=== PATIENT | male | born 1985 | race Caucasian/White ===

== ENCOUNTER 2016-08-09 16:40 | Emergency (ER) | payer OTHER ==
--- NOTE | 2016-08-09 17:02 | ED CLINICAL REPORT ---
Clinical Report - Physicians/Mid Levels [facility] [address] [place] [address] 08/09/2016 16:41 [id number] Time Seen: 17:03 Aug 09 2016. Arrived- By private vehicle. HISTORY OF PRESENT ILLNESS Chief Complaint: DENTAL PAIN. This started 2 1/2 weeks and is still present. Pain described as moderate. No nasal congestion. He has had toothache. (patient presents fracture to his tooth over the last 2-1/2 weeks, pain. He reports was referred to the emergency department by his primary care provider. Patient reports pain with eating. Emesis from pain. At times dizzy. Reports taking Motrin for his right lower extremity, with a fracture and surgery and physical therapy a few years previously.). REVIEW OF SYSTEMS No fever, cough or difficulty breathing. All systems otherwise negative, except as recorded above. PAST HISTORY Problems: Diarrhea. Vomiting. Flank Pain. Asthma. Urinary Calculi. Renal Colic. Ureterolithiasis. Renal Failure. Nephrolithiasis. Abdominal Pain. Eye Injury. Upper Extremity Pain. Tendonitis. Corneal Abrasion. Immunizations. Additional Surgeries: Lithotripsy. Tib/fib fx repair . Medications: Albuterol Sulfate Inhalation. Allergies: None. SOCIAL HISTORY History of drug use: marijuana. ADDITIONAL NOTES The nursing notes have been reviewed. PHYSICAL EXAM Vital Signs: 08/09/2016 16:45 BP: 124/78. HR: 85. RR: 16. O2 saturation: 100%. Temp: 97.7 F. Pain level now: 6/10. Appearance: Alert. Head: Normal external inspection. ENT: Lips normal. Uvula midline. (They K of molar tooth is pushed on the lower aspect with fracture to both lowest teeth, no gumline mass. Right-sided gumline erythema and tenderness. No facial swelling. Uvula midline.). Neck: Trachea midline. CVS: Normal heart rate and rhythm. Heart sounds normal. Respiratory: No respiratory distress. Breath sounds normal. Neuro: Oriented X 3. PROGRESS AND PROCEDURES Course of Care: Patient with uvula midline, no signs of facial swelling. No signs of Jh's angina. Tolerating secretions ll. Reports he has no insurance or income, urged to follow up with a dentist as he will likely need such teeth extracted or this will recur with infectious process. 08/09/2016 16:45 BP: 124/78. HR: 85. RR: 16. O2 saturation: 100%. Temp: 97.7 F. Pain level now: 6/10. Patient is stable. Symptoms better. Patient/family counseled. Disposition: Discharged. CLINICAL IMPRESSION Moderate dental pain. INSTRUCTIONS Drink plenty of fluids. Prescription Medications: Hydrocodone/APAP 7.5mg / 325mg: take 1 orally every 6 hours as needed for pain. Dispense ten (10). No refill. Amoxicillin 500 mg capsules: take 1 orally every 8 hours for 10 days Follow-up: Follow up with a specialist in five days. (Electronically signed by Rosa Elena Ray P.A.-C 08/09/2016 17:05)
--- NOTE | 2016-08-09 17:02 | ED ORDER SUMMARY ---
..... Patient: KIM BAILEY OrderSheet [facility] VisitID: [id number] [place] [address] 31y, M Registration Date/Time: 08/09/2016 ORDER SHEET Weight: 148.7 kg Allergies: None GENERAL ORDERS: MEDICATION ORDERS: Hydrocodone-APAP PO 10/650 mg (NOW, HIGH ALERT MEDICATION) (16:49 08/09/2016 Nagi Anderson) (Ack 16:54 Luis R.N.) (17:19 Luis R.N.) Amoxicillin PO 500 mg (NOW) (16:49 08/09/2016 Nagi Anderson) (Ack 16:54 Luis R.N.) (17:19 Luis R.N.) IV FLUIDS: ORDER SHEET NOTES: [Electronically signed by Rosa Elena Ray P.A.-C (17:08/09/2016)] [Electronically signed by Luis Cameron R.N. (17:21 08/09/2016)] [Electronically locked/signed by Luis Cameron R.N. (17:08/09/2016)]
--- NOTE | 2016-08-09 17:02 | ED NURSING NOTES ---
Clinical Report - Nurses [facility] [address] [place] [address] 08/09/2016 16:41 Patient: KIM BAILEY TRIAGE Triage time 16:45. Acuity: LEVEL 5. Chief Complaint: RIGHT LOWER TOOTHACHE and CHIPPED TOOTH. --16:53 Luis Cameron R.N. 16:45 08/09/16. BP: 124/78. HR: 85. RR: 16. O2 saturation: 100%. Temp: 97.7 F. Pain level now: 08/25. --16:53 Luis Cameron R.N. Weight: 148.7 kg. Height/Length: 72 inches. BMI: 44.5. --16:50 Luis Cameron R.N. Medications Albuterol Sulfate Inhalation. --16:46 Luis Cameron R.N. Medication/allergy information source: the patient. --16:53 Luis Cameron R.N. Allergies None. --16:46 Luis Cameron R.N. History Arrived by private vehicle. Historian: patient. ( Chipped his tooth while biting a piece of bread 3 weeks ago, increasing toothache since. No dental coverage and was seen few days ago by PCP and told to come to ER for antibiotics and analgesia. also had nausea and vomiting with pain.). Onset was gradual. (3 weeks ago). He has no dental appointment scheduled. He has had a toothache. 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 SOCIAL HX: Smoker- current status unknown. History of drug use: marijuana. (3 days ago). --16:53 Luis Cameron R.N. Interventions ID band on patient. To room. --16:53 Luis Cameron R.N. PHYSICAL ASSESSMENT Ambulatory to room. GENERAL / NEURO / PSYCH: Alert. Oriented X 4. Appears in no acute distress. HEENT: Pupils equal, round and reactive to light. Voice within normal limits. Dental tenderness. Dental decay (right lower molar area, left lower molar area). Mucous membranes are pink. RESPIRATORY: Respirations not labored. CVS: Capillary refill less than 2 seconds. SKIN: Skin is warm and dry. Normal skin turgor. --16:53 Luis Cameron R.N. NURSING PROGRESS NOTES Head of bed elevated. Patient identifiers checked. Call light placed in reach. Side rails up x 1. Bed placed in lowest position. Brakes of bed on. Patient ready for evaluation- CLASSIFICATIONS OFFICER CC/CM notified. --16:54 Luis Cameorn R.N. 17:19 08/09/2016 Hydrocodone-APAP (Hydrocodone-Acetaminophen) PO 5/325 mg Tablets 2 tab given. Allergies verified, confirmed 5 rights and sedative warning given to the patient. --17:19 Luis Cameron R.N. 17:19 08/09/2016 Amoxicillin PO 500 mg given. Allergies verified and confirmed 5 rights. --17:19 Luis Cameron R.N. DISPOSITION / DISCHARGE No learning barriers present. Discharge instructions provided and reviewed with the patient. Reviewed medication(s) side effects, precautions, dosing and course information. Prescription(s) given to the patient. Reviewed referral to a dentist and primary care physician. Patient verbalized understanding. Written instructions provided in Portuguese. The patient was discharged home and accompanied by social work therapist and GIRLFRIEND. He left the Emergency Department ambulatory and via private vehicle. Creel Hand driving (GIRLFRIEND). --17:20 Luis Cameron R.N. 17:19 08/09/16. BP: 127/86. HR: 86. RR: 16. O2 saturation: 100%. Temp: 97.8 F. Pain level now: 07/25. --17:20 Luis Cameron R.N. Departure time: :20. --17:21 Luis Cameron R.N. Locked/Released at 08/09/2016 17:21 by Luis Cameron R.N.
--- NOTE | 2016-08-09 17:02 | ED ORDER SUMMARY ---
..... Patient: KIM BAILEY OrderSheet [facility] VisitID: [id number] [place] [address] 31y, M Registration Date/Time: 08/09/2016 ORDER SHEET Weight: 148.7 kg Allergies: None GENERAL ORDERS: MEDICATION ORDERS: Hydrocodone-APAP PO 10/650 mg (NOW, HIGH ALERT MEDICATION) (16:49 08/09/2016 Nagi Anderson) (Ack 16:54 Luis R.N.) (17:19 Luis R.N.) Amoxicillin PO 500 mg (NOW) (16:49 08/09/2016 Nagi Anderson) (Ack 16:54 Luis R.N.) (17:19 Luis R.N.) IV FLUIDS: ORDER SHEET NOTES: [Electronically signed by Rosa Elena Ray P.A.-C (17:08/09/2016)] [Electronically signed by Luis Cameron R.N. (17:21 08/09/2016)] [Electronically locked/signed by Luis Cameron R.N. (17:08/09/2016)]
--- NOTE | 2016-08-09 17:02 | ED NURSING NOTES ---
Clinical Report - Nurses [facility] [address] [place] [address] 08/09/2016 16:41 Patient: KIM BAILEY TRIAGE Triage time 16:45. Acuity: LEVEL 5. Chief Complaint: RIGHT LOWER TOOTHACHE and CHIPPED TOOTH. --16:53 Luis Cameron R.N. 16:45 08/09/16. BP: 124/78. HR: 85. RR: 16. O2 saturation: 100%. Temp: 97.7 F. Pain level now: 08/25. --16:53 Luis Cameron R.N. Weight: 148.7 kg. Height/Length: 72 inches. BMI: 44.5. --16:50 Luis Cameron R.N. Medications Albuterol Sulfate Inhalation. --16:46 Luis Cameron R.N. Medication/allergy information source: the patient. --16:53 Luis Cameron R.N. Allergies None. --16:46 Luis Cameron R.N. History Arrived by private vehicle. Historian: patient. ( Chipped his tooth while biting a piece of bread 3 weeks ago, increasing toothache since. No dental coverage and was seen few days ago by PCP and told to come to ER for antibiotics and analgesia. also had nausea and vomiting with pain.). Onset was gradual. (3 weeks ago). He has no dental appointment scheduled. He has had a toothache. 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 SOCIAL HX: Smoker- current status unknown. History of drug use: marijuana. (3 days ago). --16:53 Luis Cameron R.N. Interventions ID band on patient. To room. --16:53 Luis Cameron R.N. PHYSICAL ASSESSMENT Ambulatory to room. GENERAL / NEURO / PSYCH: Alert. Oriented X 4. Appears in no acute distress. HEENT: Pupils equal, round and reactive to light. Voice within normal limits. Dental tenderness. Dental decay (right lower molar area, left lower molar area). Mucous membranes are pink. RESPIRATORY: Respirations not labored. CVS: Capillary refill less than 2 seconds. SKIN: Skin is warm and dry. Normal skin turgor. --16:53 Luis Cameron R.N. NURSING PROGRESS NOTES Head of bed elevated. Patient identifiers checked. Call light placed in reach. Side rails up x 1. Bed placed in lowest position. Brakes of bed on. Patient ready for evaluation- RADIATION PHYSICIST notified. --16:54 Luis Cameron R.N. 17:19 08/09/2016 Hydrocodone-APAP (Hydrocodone-Acetaminophen) PO 5/325 mg Tablets 2 tab given. Allergies verified, confirmed 5 rights and sedative warning given to the patient. --17:19 Luis Cameron R.N. 17:19 08/09/2016 Amoxicillin PO 500 mg given. Allergies verified and confirmed 5 rights. --17:19 Luis Cameron R.N. DISPOSITION / DISCHARGE No learning barriers present. Discharge instructions provided and reviewed with the patient. Reviewed medication(s) side effects, precautions, dosing and course information. Prescription(s) given to the patient. Reviewed referral to a dentist and primary care physician. Patient verbalized understanding. Written instructions provided in Syriac. The patient was discharged home and accompanied by radiation protection specialist and GIRLFRIEND. He left the Emergency Department ambulatory and via private vehicle. Patient Care Manager driving (GIRLFRIEND). --17:20 Luis Cameron R.N. 17:19 08/09/16. BP: 127/86. HR: 86. RR: 16. O2 saturation: 100%. Temp: 97.8 F. Pain level now: 07/25. --17:20 Luis Cameron R.N. Departure time: :20. --17:21 Luis Cameron R.N. Locked/Released at 08/09/2016 17:21 by Luis Cameron R.N.
--- NOTE | 2016-08-09 17:02 | ED CLINICAL REPORT ---
Clinical Report - Physicians/Mid Levels [facility] [address] [place] [address] 08/09/2016 16:41 [id number] Time Seen: 17:03 Aug 09 2016. Arrived- By private vehicle. HISTORY OF PRESENT ILLNESS Chief Complaint: DENTAL PAIN. This started 2 1/2 weeks and is still present. Pain described as moderate. No nasal congestion. He has had toothache. (patient presents fracture to his tooth over the last 2-1/2 weeks, pain. He reports was referred to the emergency department by his primary care provider. Patient reports pain with eating. Emesis from pain. At times dizzy. Reports taking Motrin for his right lower extremity, with a fracture and surgery and physical therapy a few years previously.). REVIEW OF SYSTEMS No fever, cough or difficulty breathing. All systems otherwise negative, except as recorded above. PAST HISTORY Problems: Diarrhea. Vomiting. Flank Pain. Asthma. Urinary Calculi. Renal Colic. Ureterolithiasis. Renal Failure. Nephrolithiasis. Abdominal Pain. Eye Injury. Upper Extremity Pain. Tendonitis. Corneal Abrasion. Immunizations. Additional Surgeries: Lithotripsy. Tib/fib fx repair . Medications: Albuterol Sulfate Inhalation. Allergies: None. SOCIAL HISTORY History of drug use: marijuana. ADDITIONAL NOTES The nursing notes have been reviewed. PHYSICAL EXAM Vital Signs: 08/09/2016 16:45 BP: 124/78. HR: 85. RR: 16. O2 saturation: 100%. Temp: 97.7 F. Pain level now: 6/10. Appearance: Alert. Head: Normal external inspection. ENT: Lips normal. Uvula midline. (They K of molar tooth is pushed on the lower aspect with fracture to both lowest teeth, no gumline mass. Right-sided gumline erythema and tenderness. No facial swelling. Uvula midline.). Neck: Trachea midline. CVS: Normal heart rate and rhythm. Heart sounds normal. Respiratory: No respiratory distress. Breath sounds normal. Neuro: Oriented X 3. PROGRESS AND PROCEDURES Course of Care: Patient with uvula midline, no signs of facial swelling. No signs of Jh's angina. Tolerating secretions ll. Reports he has no insurance or income, urged to follow up with a dentist as he will likely need such teeth extracted or this will recur with infectious process. 08/09/2016 16:45 BP: 124/78. HR: 85. RR: 16. O2 saturation: 100%. Temp: 97.7 F. Pain level now: 6/10. Patient is stable. Symptoms better. Patient/family counseled. Disposition: Discharged. CLINICAL IMPRESSION Moderate dental pain. INSTRUCTIONS Drink plenty of fluids. Prescription Medications: Hydrocodone/APAP 7.5mg / 325mg: take 1 orally every 6 hours as needed for pain. Dispense ten (10). No refill. Amoxicillin 500 mg capsules: take 1 orally every 8 hours for 10 days Follow-up: Follow up with a specialist in five days. (Electronically signed by Rosa Elena Ray P.A.-C 08/09/2016 17:05)
--- NOTE | 2016-08-09 17:21 | ED DISCHARGE INSTRUCTIONS ---
Patient: KIM BAILEY General Instructions [facility] VisitID: [id number] [place] [address] 31y, M Registration Date/Time: 08/09/2016 Moderate dental pain. INSTRUCTIONS Drink plenty of fluids. Prescription Medications: Hydrocodone/APAP 7.5mg / 325mg: take 1 orally every 6 hours as needed for pain. Dispense ten (10). No refill. Amoxicillin 500 mg capsules: take 1 orally every 8 hours for 10 days Follow-up: Follow up with a specialist in five days. ADDITIONAL INFORMATION Dental Pain A crack or cavity in the tooth, which exposes the sensitive inner area of the tooth can cause tooth pain. An infection in the gum or the root of the tooth can cause pain and swelling. The pain is often made worse by drinking hot or cold fluids, or biting on hard foods. Pain may spread from the tooth to the ear or jaw on the same side. Home Care: Avoid hot and cold foods and liquids since your tooth may be sensitive to temperature changes. If your tooth is chipped or cracked, or if there is a large open cavity, apply OIL OF CLOVES (available xvbh-boa-eivxbfi in drug stores) directly to the tooth to reduce pain. Some pharmacies carry an ydbn-jmv-cmohpis "toothache kit." This contains a paste, which can be applied over the exposed tooth to decrease sensitivity. A cold pack on your jaw over the sore area may help reduce pain. You may use acetaminophen (Tylenol) or ibuprofen (Motrin, Advil) to control pain, unless another medicine was prescribed. [ NOTE: If you have chronic liver or kidney disease or ever had a stomach ulcer or GI bleeding, talk with your doctor before using these medicines.] If you have signs of an infection, an antibiotic will be given. Take it as directed. Follow-Up as directed with a dentist. Your pain may go away with the treatment given. However, only a dentist can fully evaluate and treat the cause and prevent the pain from coming back again. TOOTHACHE IS A SIGN OF DISEASE IN YOUR TOOTH AND SHOULD BE EXAMINED AND TREATED BY A DENTIST. Get Prompt Medical Attention if any of the following occur: Your face becomes swollen or red Pain worsens or spreads to the neck Fever over 100.4 F (38.0 C) Unusual drowsiness; headache or stiff neck; weakness or fainting Pus drains from the tooth Difficulty swallowing or breathing Hydrocodone Bitartrate, Acetaminophen Oral tablet What is this medicine? ACETAMINOPHEN; HYDROCODONE (a set a JOE winston fen; asiya droe KOE done) is a pain reliever. It is used to treat mild to moderate pain. How should I use this medicine? Take this medicine by mouth. Swallow it with a full glass of water. Follow the directions on the prescription label. If the medicine upsets your stomach, take the medicine with food or milk. Do not take more than you are told to take. Talk to your private wealth advisor regarding the use of this medicine in children. This medicine is not approved for use in children. What side effects may I notice from receiving this medicine? Side effects that you should report to your doctor or health prompt care rn as soon as possible: allergic reactions like skin rash, itching or hives, swelling of the face, lips, or tongue breathing problems confusion feeling faint or lightheaded, falls stomach pain yellowing of the eyes or skin Side effects that usually do not require medical attention (report to your doctor or health prompt care rn if they continue or are bothersome): nausea, vomiting stomach upset What may interact with this medicine? alcohol antihistamines isoniazid medicines for depression, anxiety, or psychotic disturbances medicines for sleep muscle relaxants naltrexone narcotic medicines (opiates) for pain phenobarbital ritonavir tramadol What if I miss a dose? If you miss a dose, take it as soon as you can. If it is almost time for your next dose, take only that dose. Do not take double or extra doses. Where should I keep my medicine? Keep out of the reach of children. This medicine can be abused. Keep your medicine in a safe place to protect it from theft. Do not share this medicine with anyone. Selling or giving away this medicine is dangerous and against the law. Store at room temperature between 15 and 30 degrees C (59 and 86 degrees F). Protect from light. Keep container tightly closed. Throw away any unused medicine after the expiration date. Discard unused medicine and used packaging carefully. Pets and children can be harmed if they find used or lost packages. What should I tell my health care provider before I take this medicine? They need to know if you have any of these conditions: brain tumor Crohn's disease, inflammatory bowel disease, or ulcerative colitis drink more than 3 alcohol-containing drinks per day drug abuse or addiction head injury heart or circulation problems kidney disease or problems going to the bathroom liver disease lung disease, asthma, or breathing problems an unusual or allergic reaction to acetaminophen, hydrocodone, other opioid analgesics, other medicines, foods, dyes, or preservatives or trying to get breast-feeding What should I watch for while using this medicine? Tell your doctor or health prompt care rn if your pain does not go away, if it gets worse, or if you have new or a different type of pain. You may develop tolerance to the medicine. Tolerance means that you will need a higher dose of the medicine for pain relief. Tolerance is normal and is expected if you take the medicine for a long time. Do not suddenly stop taking your medicine because you may develop a severe reaction. Your body becomes used to the medicine. This does NOT mean you are addicted. Addiction is a behavior related to getting and using a drug for a non-medical reason. If you have pain, you have a medical reason to take pain medicine. Your doctor will tell you how much medicine to take. If your doctor wants you to stop the medicine, the dose will be slowly lowered over time to avoid any side effects. You may get drowsy or dizzy when you first start taking the medicine or change doses. Do not drive, use machinery, or do anything that may be dangerous until you know how the medicine affects you. Stand or sit up slowly. There are different types of narcotic medicines (opiates) for pain. If you take more than one type at the same time, you may have more side effects. Give your health care provider a list of all medicines you use. Your doctor will tell you how much medicine to take. Do not take more medicine than directed. Call emergency for help if you have problems breathing. The medicine will cause constipation. Try to have a bowel movement at least every 2 to 3 days. If you do not have a bowel movement for 3 days, call your doctor or health prompt care rn. Too much acetaminophen can be very dangerous. Do not take Tylenol (acetaminophen) or medicines that contain acetaminophen with this medicine. Many non-prescription medicines contain acetaminophen. Always read the labels carefully. Amoxicillin Trihydrate Oral tablet What is this medicine? AMOXICILLIN (a mox i KIANNA in) is a penicillin antibiotic. It is used to treat certain kinds of bacterial infections. It will not work for colds, flu, or other viral infections. How should I use this medicine? Take this medicine by mouth with a glass of water. Follow the directions on your prescription label. You may take this medicine with food or on an empty stomach. Take your medicine at regular intervals. Do not take your medicine more often than directed. Take all of your medicine as directed even if you think your are better. Do not skip doses or stop your medicine early. Talk to your private wealth advisor regarding the use of this medicine in children. While this drug may be prescribed for selected conditions, precautions do apply. What side effects may I notice from receiving this medicine? Side effects that you should report to your doctor or health prompt care rn as soon as possible: allergic reactions like skin rash, itching or hives, swelling of the face, lips, or tongue breathing problems dark urine redness, blistering, peeling or loosening of the skin, including inside the mouth seizures severe or watery diarrhea trouble passing urine or change in the amount of urine unusual bleeding or bruising unusually weak or tired yellowing of the eyes or skin Side effects that usually do not require medical attention (report to your doctor or health prompt care rn if they continue or are bothersome): dizziness headache stomach upset trouble sleeping What may interact with this medicine? amiloride control pills chloramphenicol macrolides probenecid sulfonamides tetracyclines What if I miss a dose? If you miss a dose, take it as soon as you can. If it is almost time for your next dose, take only that dose. Do not take double or extra doses. Where should I keep my medicine? Keep out of the reach of children. Store between 68 and 77 degrees F (20 and 25 degrees C). Keep bottle closed tightly. Throw away any unused medicine after the expiration date. What should I tell my health care provider before I take this medicine? They need to know if you have any of these conditions: asthma kidney disease an unusual or allergic reaction to amoxicillin, other penicillins, cephalosporin antibiotics, other medicines, foods, dyes, or preservatives or trying to get breast-feeding What should I watch for while using this medicine? Tell your doctor or health prompt care rn if your symptoms do not improve in 2 or 3 days. Take all of the doses of your medicine as directed. Do not skip doses or stop your medicine early. If you are diabetic, you may get a false positive result for sugar in your urine with certain brands of urine tests. Check with your doctor. Do not treat diarrhea with lhel-vxt-jzkuafg products. Contact your doctor if you have diarrhea that lasts more than 2 days or if the diarrhea is severe and watery. You have been given the following additional information: Dental Pain Hydrocodone Bitartrate, Acetaminophen Oral tablet Amoxicillin Trihydrate Oral tablet (Electronically signed by Rosa Elena Ray P.A.-C 08/09/2016 17:05)
--- NOTE | 2016-08-09 17:21 | ED MAR SUMMARY ---
..... Medication Administration Record [facility] [address] [place] [address] Patient: KIM BAILEY Visit ID: [id number] 31y, M Weight: 148.7 kg Height/Length: 72 in BMI: 44.5 ALLERGIES: None Given 17:08/09/2016 Luis Cameron R.N. Medication Administered: HYDROCODONE-APAP [PO] (HYDROCODONE-ACETAMINOPHEN), Dose: 2 tab 5/325 mg Tablets PO. Medication Ordered: Hydrocodone-APAP PO 10/650 mg (NOW, HIGH ALERT MEDICATION). Given 17:08/09/2016 Luis Cameron RNestorNNestor Medication Administered: AMOXICILLIN [PO], Dose: 500 mg PO. Medication Ordered: Amoxicillin PO 500 mg (NOW).
--- NOTE | 2016-08-09 17:21 | ED DISCHARGE INSTRUCTIONS ---
Patient: KIM BAILEY General Instructions [facility] VisitID: [id number] [place] [address] 31y, M Registration Date/Time: 08/09/2016 Moderate dental pain. INSTRUCTIONS Drink plenty of fluids. Prescription Medications: Hydrocodone/APAP 7.5mg / 325mg: take 1 orally every 6 hours as needed for pain. Dispense ten (10). No refill. Amoxicillin 500 mg capsules: take 1 orally every 8 hours for 10 days Follow-up: Follow up with a specialist in five days. ADDITIONAL INFORMATION Dental Pain A crack or cavity in the tooth, which exposes the sensitive inner area of the tooth can cause tooth pain. An infection in the gum or the root of the tooth can cause pain and swelling. The pain is often made worse by drinking hot or cold fluids, or biting on hard foods. Pain may spread from the tooth to the ear or jaw on the same side. Home Care: Avoid hot and cold foods and liquids since your tooth may be sensitive to temperature changes. If your tooth is chipped or cracked, or if there is a large open cavity, apply OIL OF CLOVES (available iitm-ohv-gfzpjvl in drug stores) directly to the tooth to reduce pain. Some pharmacies carry an oiwi-gmm-ytvkbbk "toothache kit." This contains a paste, which can be applied over the exposed tooth to decrease sensitivity. A cold pack on your jaw over the sore area may help reduce pain. You may use acetaminophen (Tylenol) or ibuprofen (Motrin, Advil) to control pain, unless another medicine was prescribed. [ NOTE: If you have chronic liver or kidney disease or ever had a stomach ulcer or GI bleeding, talk with your doctor before using these medicines.] If you have signs of an infection, an antibiotic will be given. Take it as directed. Follow-Up as directed with a dentist. Your pain may go away with the treatment given. However, only a dentist can fully evaluate and treat the cause and prevent the pain from coming back again. TOOTHACHE IS A SIGN OF DISEASE IN YOUR TOOTH AND SHOULD BE EXAMINED AND TREATED BY A DENTIST. Get Prompt Medical Attention if any of the following occur: Your face becomes swollen or red Pain worsens or spreads to the neck Fever over 100.4 F (38.0 C) Unusual drowsiness; headache or stiff neck; weakness or fainting Pus drains from the tooth Difficulty swallowing or breathing Hydrocodone Bitartrate, Acetaminophen Oral tablet What is this medicine? ACETAMINOPHEN; HYDROCODONE (a set a JOE winston fen; asiya droe KOE done) is a pain reliever. It is used to treat mild to moderate pain. How should I use this medicine? Take this medicine by mouth. Swallow it with a full glass of water. Follow the directions on the prescription label. If the medicine upsets your stomach, take the medicine with food or milk. Do not take more than you are told to take. Talk to your online marketing coordinator regarding the use of this medicine in children. This medicine is not approved for use in children. What side effects may I notice from receiving this medicine? Side effects that you should report to your doctor or health health care sanitary technician as soon as possible: allergic reactions like skin rash, itching or hives, swelling of the face, lips, or tongue breathing problems confusion feeling faint or lightheaded, falls stomach pain yellowing of the eyes or skin Side effects that usually do not require medical attention (report to your doctor or health health care sanitary technician if they continue or are bothersome): nausea, vomiting stomach upset What may interact with this medicine? alcohol antihistamines isoniazid medicines for depression, anxiety, or psychotic disturbances medicines for sleep muscle relaxants naltrexone narcotic medicines (opiates) for pain phenobarbital ritonavir tramadol What if I miss a dose? If you miss a dose, take it as soon as you can. If it is almost time for your next dose, take only that dose. Do not take double or extra doses. Where should I keep my medicine? Keep out of the reach of children. This medicine can be abused. Keep your medicine in a safe place to protect it from theft. Do not share this medicine with anyone. Selling or giving away this medicine is dangerous and against the law. Store at room temperature between 15 and 30 degrees C (59 and 86 degrees F). Protect from light. Keep container tightly closed. Throw away any unused medicine after the expiration date. Discard unused medicine and used packaging carefully. Pets and children can be harmed if they find used or lost packages. What should I tell my health care provider before I take this medicine? They need to know if you have any of these conditions: brain tumor Crohn's disease, inflammatory bowel disease, or ulcerative colitis drink more than 3 alcohol-containing drinks per day drug abuse or addiction head injury heart or circulation problems kidney disease or problems going to the bathroom liver disease lung disease, asthma, or breathing problems an unusual or allergic reaction to acetaminophen, hydrocodone, other opioid analgesics, other medicines, foods, dyes, or preservatives or trying to get breast-feeding What should I watch for while using this medicine? Tell your doctor or health health care sanitary technician if your pain does not go away, if it gets worse, or if you have new or a different type of pain. You may develop tolerance to the medicine. Tolerance means that you will need a higher dose of the medicine for pain relief. Tolerance is normal and is expected if you take the medicine for a long time. Do not suddenly stop taking your medicine because you may develop a severe reaction. Your body becomes used to the medicine. This does NOT mean you are addicted. Addiction is a behavior related to getting and using a drug for a non-medical reason. If you have pain, you have a medical reason to take pain medicine. Your doctor will tell you how much medicine to take. If your doctor wants you to stop the medicine, the dose will be slowly lowered over time to avoid any side effects. You may get drowsy or dizzy when you first start taking the medicine or change doses. Do not drive, use machinery, or do anything that may be dangerous until you know how the medicine affects you. Stand or sit up slowly. There are different types of narcotic medicines (opiates) for pain. If you take more than one type at the same time, you may have more side effects. Give your health care provider a list of all medicines you use. Your doctor will tell you how much medicine to take. Do not take more medicine than directed. Call emergency for help if you have problems breathing. The medicine will cause constipation. Try to have a bowel movement at least every 2 to 3 days. If you do not have a bowel movement for 3 days, call your doctor or health health care sanitary technician. Too much acetaminophen can be very dangerous. Do not take Tylenol (acetaminophen) or medicines that contain acetaminophen with this medicine. Many non-prescription medicines contain acetaminophen. Always read the labels carefully. Amoxicillin Trihydrate Oral tablet What is this medicine? AMOXICILLIN (a mox i KIANNA in) is a penicillin antibiotic. It is used to treat certain kinds of bacterial infections. It will not work for colds, flu, or other viral infections. How should I use this medicine? Take this medicine by mouth with a glass of water. Follow the directions on your prescription label. You may take this medicine with food or on an empty stomach. Take your medicine at regular intervals. Do not take your medicine more often than directed. Take all of your medicine as directed even if you think your are better. Do not skip doses or stop your medicine early. Talk to your online marketing coordinator regarding the use of this medicine in children. While this drug may be prescribed for selected conditions, precautions do apply. What side effects may I notice from receiving this medicine? Side effects that you should report to your doctor or health health care sanitary technician as soon as possible: allergic reactions like skin rash, itching or hives, swelling of the face, lips, or tongue breathing problems dark urine redness, blistering, peeling or loosening of the skin, including inside the mouth seizures severe or watery diarrhea trouble passing urine or change in the amount of urine unusual bleeding or bruising unusually weak or tired yellowing of the eyes or skin Side effects that usually do not require medical attention (report to your doctor or health health care sanitary technician if they continue or are bothersome): dizziness headache stomach upset trouble sleeping What may interact with this medicine? amiloride control pills chloramphenicol macrolides probenecid sulfonamides tetracyclines What if I miss a dose? If you miss a dose, take it as soon as you can. If it is almost time for your next dose, take only that dose. Do not take double or extra doses. Where should I keep my medicine? Keep out of the reach of children. Store between 68 and 77 degrees F (20 and 25 degrees C). Keep bottle closed tightly. Throw away any unused medicine after the expiration date. What should I tell my health care provider before I take this medicine? They need to know if you have any of these conditions: asthma kidney disease an unusual or allergic reaction to amoxicillin, other penicillins, cephalosporin antibiotics, other medicines, foods, dyes, or preservatives or trying to get breast-feeding What should I watch for while using this medicine? Tell your doctor or health health care sanitary technician if your symptoms do not improve in 2 or 3 days. Take all of the doses of your medicine as directed. Do not skip doses or stop your medicine early. If you are diabetic, you may get a false positive result for sugar in your urine with certain brands of urine tests. Check with your doctor. Do not treat diarrhea with pxvr-xqb-qarfnte products. Contact your doctor if you have diarrhea that lasts more than 2 days or if the diarrhea is severe and watery. You have been given the following additional information: Dental Pain Hydrocodone Bitartrate, Acetaminophen Oral tablet Amoxicillin Trihydrate Oral tablet (Electronically signed by Rosa Elena Ray P.A.-C 08/09/2016 17:05)
--- NOTE | 2016-08-09 17:21 | ED MED RECONCILIATION SUMMARY ---
Patient: KIM BAILEY Medication Reconciliation Report [facility] VisitID: [id number] [address] [place] [address] 31y, M Registration Date/Time: 08/09/2016 Weight: 148.7 kg Height/Length: 72 in. BMI: 44.5 ALLERGIES: None The patient's Home Medications are listed below: THE FOLLOWING MEDICATIONS NEED TO BE RECONCILED: Albuterol Sulfate Inhalation The source(s) of the original Home Medication information: patient The following Medications were given to the patient in the Emergency Department: Hydrocodone-APAP [PO] PO 2 tab, administered: 08/09/2016 5:19:00 PM Amoxicillin [PO] PO 500 mg, administered: 08/09/2016 5:19:00 PM The following Medications were prescribed to the patient: Hydrocodone/APAP 7.5mg / 325mg: take 1 orally every 6 hours as needed for pain. Dispense ten (10). No refill. -- Rosa Elena Ray, P.ANestor-Koki Amoxicillin 500 mg capsules: take 1 orally every 8 hours for 10 days -- Rosa Elena Ray, P.A.-C
--- NOTE | 2016-08-09 17:21 | ED MAR SUMMARY ---
..... Medication Administration Record [facility] [address] [place] [address] Patient: KIM BAILEY Visit ID: [id number] 31y, M Weight: 148.7 kg Height/Length: 72 in BMI: 44.5 ALLERGIES: None Given 17:08/09/2016 Luis Cameron R.N. Medication Administered: HYDROCODONE-APAP [PO] (HYDROCODONE-ACETAMINOPHEN), Dose: 2 tab 5/325 mg Tablets PO. Medication Ordered: Hydrocodone-APAP PO 10/650 mg (NOW, HIGH ALERT MEDICATION). Given 17:08/09/2016 Luis Cameron RNestorNNestor Medication Administered: AMOXICILLIN [PO], Dose: 500 mg PO. Medication Ordered: Amoxicillin PO 500 mg (NOW).
--- NOTE | 2016-08-09 17:21 | ED MED RECONCILIATION SUMMARY ---
Patient: KIM BAILEY Medication Reconciliation Report [facility] VisitID: [id number] [address] [place] [address] 31y, M Registration Date/Time: 08/09/2016 Weight: 148.7 kg Height/Length: 72 in. BMI: 44.5 ALLERGIES: None The patient's Home Medications are listed below: THE FOLLOWING MEDICATIONS NEED TO BE RECONCILED: Albuterol Sulfate Inhalation The source(s) of the original Home Medication information: patient The following Medications were given to the patient in the Emergency Department: Hydrocodone-APAP [PO] PO 2 tab, administered: 08/09/2016 5:19:00 PM Amoxicillin [PO] PO 500 mg, administered: 08/09/2016 5:19:00 PM The following Medications were prescribed to the patient: Hydrocodone/APAP 7.5mg / 325mg: take 1 orally every 6 hours as needed for pain. Dispense ten (10). No refill. -- Rosa Elena Ray, P.ANestor-Koki Amoxicillin 500 mg capsules: take 1 orally every 8 hours for 10 days -- Rosa Elena Ray, P.A.-C
== END 2016-08-09 17:20 | disposition home or self-care (01) ==
LOC: ED SRH 16:40
DX: K08.89 Other specified disorders of teeth and supporting structures (principal); J45.909 Unspecified asthma, uncomplicated